=== PATIENT | male | born 1950 | race Caucasian/White ===

== ENCOUNTER → 2021-11-20 09:28 | Outpatient (BNVA) | payer MEDICARE, OTHER, SELFPAY | PROVIDERS: PCP Student in an Organized Health Care Education/Training Program; Visit Provider Internal Medicine Rheumatology | DX: M15.9 Polyosteoarthritis, unspecified (principal); R76.8 Other specified abnormal immunological findings in serum; Z11.59 Encounter for screening for other viral diseases; Z71.85 Encounter for immunization safety counseling; Z79.899 Other long term (current) drug therapy; Z11.1 Encounter for screening for respiratory tuberculosis | CPT/HCPCS: 36415; 80076; 82565; 85025; 85651; 86140; 86160; 86162; 86200; 86235; 86255; 86376; 86431; 86480; 86704; 86803; 87340; 99204 ==

== ENCOUNTER → 2022-01-27 10:49 | Outpatient (BNVA) | payer MEDICARE, OTHER, SELFPAY | PROVIDERS: PCP Student in an Organized Health Care Education/Training Program; Visit Provider Internal Medicine Rheumatology | DX: M15.9 Polyosteoarthritis, unspecified (principal); R76.8 Other specified abnormal immunological findings in serum; Z79.899 Other long term (current) drug therapy; Z71.85 Encounter for immunization safety counseling | CPT/HCPCS: 36415; 72072; 72100; 73030; 80076; 82565; 85025; 86140; 99214 ==

== ENCOUNTER 2022-03-19 10:35 | Outpatient (CLI) | payer MEDICARE, OTHER, SELFPAY ==
--- NOTE | 2022-03-19 11:00 | MR_ITS ---
WS: [id number] MRI LEFT SHOULDER HISTORY: Crystal arthropathies. Chronic shoulder pain. COMPARISON: 01/27/2022 radiograph TECHNIQUE: Multiplanar sequences of the shoulder joint are submitted. Severe AC joint arthritis with encroachment upon the myotendinous supraspinatus. Edema along the AC l igament with hypertrophic osteophytes and erosions involving the distal clavicle. Mild subacromial im pingement by the distal acromion. No os acromion. Normal biceps tendon. Large hypertrophic osteophyte along the medial surface of the humeral head. Narrowing of the glenohum eral joint. Loss of cartilage. Additional osteophytes are bridging the glenoid. Chondral cystic changes along the posterior superior humeral head. Moderate tendinopathy in the distal supraspinatus tendon. Fraying along the articular surfaces. There is a small amount of increased focal edema at the subacromial impingement. There is also interstitia l fluid in the distal supraspinatus tendon. Subscapularis and infraspinatus tendons are intact. Fluid in the rotator cuff interval. MR/MR shoulder LT wo con* [id number] IMPRESSION: 1. Severe AC joint arthritis with encroachment upon the supraspinatus tendon. There are small erosions in the distal clavicle which can be seen with osteoart hritis, rheumatoid or gout. 2. Mild subacromial impingement. There is a small amount of edema and tendinop athy in the supraspinatus where there is impingement. 3. Large hypertrophic osteophyte surround the medial humeral head with loss of cartilage over the humeral head and glenoid. 4. Moderate tendinopathy distal supraspinatus tendon with fraying along the burgos rfaces. Additional interstitial fluid in the distal supraspinatus tendon.
== END 2022-03-19 10:36 | disposition home or self-care (01) ==
LOC: RAD 10:40
PROVIDERS: PCP Student in an Organized Health Care Education/Training Program; Visit Provider Internal Medicine Rheumatology
DX: M11.8 Other specified crystal arthropathies (principal); G89.29 Other chronic pain; M25.712 Osteophyte, left shoulder
CPT/HCPCS: 73221

== ENCOUNTER → 2022-04-21 11:27 | Outpatient (BNVA) | payer MEDICARE, OTHER, SELFPAY | PROVIDERS: PCP Student in an Organized Health Care Education/Training Program; Referring Provider Internal Medicine Rheumatology; Visit Provider Nurse Practitioner Family | DX: M19.012 Primary osteoarthritis, left shoulder (principal); M06.4 Inflammatory polyarthropathy | CPT/HCPCS: 73030; 99214 ==

== ENCOUNTER → 2022-06-09 09:36 | Outpatient (BNVA) | payer MEDICARE, OTHER, SELFPAY | PROVIDERS: PCP Student in an Organized Health Care Education/Training Program; Visit Provider Nurse Practitioner Family | DX: M19.90 Unspecified osteoarthritis, unspecified site (principal); M19.012 Primary osteoarthritis, left shoulder; R76.8 Other specified abnormal immunological findings in serum; Z79.899 Other long term (current) drug therapy; Z71.85 Encounter for immunization safety counseling | CPT/HCPCS: 36415; 80076; 82565; 85025; 86140; 99214 ==

== ENCOUNTER 2022-06-24 06:15 | Outpatient (CLI) | payer MEDICARE, OTHER, SELFPAY ==
--- NOTE | 2022-06-24 07:00 | CT_ITS ---
WS: [id number] NONCONTRAST CT LEFT SHOULDER TECHNIQUE: Noncontrast CT LEFT shoulder with coronal and sagittal reformatted images. CLINICAL INFORMATION: shoulder pain COMPARISON: None. DLP: 350.[address] scans at [facility] use at least one of these dose optimization techniques: automated e xposure control; mA and/or kV adjustment per patient size (includes targeted exams where dose is matc hed to clinical indication); or iterative reconstruction. FINDINGS: Moderate degenerative arthritis at the AC joint. Mild downsloping acromion. Impingement on the distal supraspinatus. Advanced degenerative arthritis glenohumeral articulation with hypertrophic spurring. Narrowing of the subacromial space. Hypertrophic spurring along the humeral neck. Hypertrophic spurr ing along the undersurface distal clavicle at the AC joint. Calcific tendinitis involving the distal supraspinatus insertion. Mild chronic thinning of the supras pinatus. Supraspinatus appears intact. Infraspinatus appears intact. Normal subscapularis. Normal teres minor. Subchondral cystic changes involving the greater tuberosity and glenoid. Biceps tendon appears intact within the bicipital groove. Partially visualized LEFT lung is normal. CT/CT shoulder LT wo con* [id number] IMPRESSION: 1. Moderate degenerative arthritis AC joint with hypertrophic spurring along t he distal clavicle. Mild narrowing of the subacromial space. 2. Chronic thinning of the distal supraspinatus appears intact. Rotator cuff o therwise appears intact.Calcific tendinitis involving the distal supraspinatus insertion. 3. Advanced narrowing of the glenohumeral articulation with prominent hypertro phic spurring along the medial humeral neck. 4. No other acute findings.
== END 2022-06-24 06:16 | disposition home or self-care (01) ==
LOC: RAD 06:16
PROVIDERS: PCP Registered Nurse; Visit Provider Nurse Practitioner Family
DX: M25.512 Pain in left shoulder (principal); M19.012 Primary osteoarthritis, left shoulder
CPT/HCPCS: 73200; 99213

== ENCOUNTER 2022-06-29 12:17 | Observation (INO) | payer MEDICARE, OTHER, SELFPAY ==
[2022-06-23 09:22] VITALS: BMI 28.4
--- NOTE | 2022-06-23 09:47 | P.ANESASSM_ITS ---
Pre-Anesthetic Assessment Height/Weight: Height 1.8 m Weight 92.533 kg Operation Date: 06/29/22 13:20 Proposed Procedures p left total shoulder arthroplasty/ 98285,M19.012(Left) - Eduardo Parsons MD Familial anesthetic complications: None Social No alcohol and No tobacco Exam alert, oriented x 3, clear to auscultation bilaterally and regular rate & rhythm Airway Mallampati: Class II Dentition: false Pulmonary None reported CV/HEM Hypertension leaky valves (mild) - no chest pains, syncope, SOB GI Gastroesophageal Reflux Disease [facility] Rheumatoid Arthritis Inflammatory arthritis Neuropsych Transient Ischemic Attack Anesthetic Plan ASA status: 3 Anesthesia: General and Regional (specify below) Risk of > 500 ml blood loss (7ml/kg in children): No Medications/Allergies Home Medications Medication Instructions Recorded Confirmed Last Taken Type cetirizine 10 mg tablet 10 mg PO DAILY PRN Allergic 11/20/21 06/23/22 1 Day Ago History Symptoms ~06/22/22 cholecalciferol (vitamin D3) 50 50 mcg PO DAILY 11/20/21 06/23/22 1 Day Ago History mcg (2,000 unit) capsule ~06/22/22 folic acid 1 mg tablet 1 mg PO DAILY #90 tabs 11/20/21 06/23/22 1 Day Ago Rx ~06/22/22 glucosamine HCl 1,500 mg tablet 1,500 mg PO BID 11/20/21 06/23/22 1 Day Ago Hi story ~06/22/22 losartan 100 mg tablet 100 mg PO DAILY 11/20/21 06/23/22 1 Day Ago History ~06/22/22 multivitamin 1 tab PO DAILY 11/20/21 06/23/22 1 Day Ago History ~06/22/22 pantoprazole 40 mg tablet,delayed 40 mg PO DAILY 11/20/21 06/23/22 1 Day Ago History release ~06/22/22 [id number] no2 [TL PO 11/20/21 06/09/22 1 Day Ago History Folate] ~06/22/22 tamsulosin 0.4 mg capsule 0.8 mg PO DAILY 11/20/21 06/23/22 1 Day Ago History ~06/22/22 methotrexate sodium 2.5 mg tablet See Rx Instructions PO .Q7days #30 06/09/22 06/23/22 1 Day Ago Rx tabs ~06/22/22 aspirin 81 mg capsule 81 mg PO DAILY 06/23/22 06/23/22 1 Day Ago History ~06/22/22 celecoxib 100 mg capsule 100 mg PO DAILY 06/23/22 06/23/22 1 Day Ago History ~06/22/22 nortriptyline 25 mg capsule 25 mg PO 06/23/22 Unknown History Allergies Allergy/AdvReac Type Severity Reaction Status Date / Time No Known Allergies Allergy Verified 06/23/22 09:11 [facility] Anesthesia Medical History Centromere antibody positive GERD (gastroesophageal reflux disease) Gout High risk medication use Hypertension Immunization counseling Inflammatory arthritis Kidney stone Positive ONEIDA (antinuclear antibody) Syncopal episodes Surgical History History of cholecystectomy Previous back surgery L4 L5 Family History Other Crohn's disease Denies family history of Rheumatoid arthritis Diabetes Lupus Family history of premature coronary artery disease Lung disease Hypertension Stroke Social History Smoking and tobacco status: never smoked Data Anesthesia Cardiac Studies: No Data to Display
[2022-06-29] VITALS (14 sets, daily range): BP systolic 94–139; BP diastolic 61–86; PULSE 67–109; RESP 14–18; TEMP 36.1–36.8; O2SAT 90–100
[2022-06-29] MEDS: gabapentin 300 mg Capsule PO ×2 (08:21→16:54)
[2022-06-29] MEDS: acetaminophen 500 mg Tablet 1000 MG PO ×2 (08:21→16:41)
[2022-06-29] MEDS: CELEcoxib 200 mg Capsule 400 MG PO (08:21)
[2022-06-29] MEDS: sodium chloride 0.9% 1,000 ML 30 ML IV (08:21)
--- NOTE | 2022-06-29 08:58 | P.ANESUD_ITS ---
Pre-Anesthetic Update Pre-Anesthetic Assessment: Date of Surgery/Procedure: 06/29/22 Preop Lyndsey gnosis: Osteoarthritis left shoulder Proposed Procedure: Operation Date: 06/29/22 10:05 Proposed Procedures p left total shoulder arthroplasty/ 12429,M19.012(Left) - Eduardo Parsons MD Any changes to Pre-Anesthetic Assessment?: No Last Intake: Intake Last Liquid Date 06/28/22 Last Liquid Time 19:30 Last Solid Date 06/28/22 Last Solid Time 17:30 Vitals: Oxygen Delivery Me thod 06/29/22 08:17 Exam: Pre-Anes Outpt Exam: alert, oriented x 3, clear to auscultation bilaterally and regular rate & rhythm Cardiac Studies: No Data to Display Anesthesia Procedures Nerve Block: Nerve Block 1: Main Anesthesia: general anesthesia Time Out Performed: Yes Consent: requested by attending/covering physician, from patient, risks and benefits reviewed and patient agrees to proceed Nerve block location: interscalene (left) Anesthesia monitors applied: pulse oximetry, EKG, BP cuff and oxygen Nerve block position: semi sitting Anesthetic Used: ropivicaine 0.5% Amount of anesthesia used (mL): 30 Ultrasound used to: recognize landmarks and visualize and ID brachial plexus Nerve Stimulator Used?: No Interscalene/Femoral BLK: 2 stimuplex 22 g needle used for position and inplane approach Injection: neg aspiration of heme Patient Tolerated Procedure: well Complications: none
--- NOTE | 2022-06-29 09:19 | W.PM.OPSFHP ---
Same Day Surgery H&P Indication for Procedure/HPI DATE OF PROCEDURE: June 29, 2022 CHIEF COMPLAINT/INDICATIONFOR SURGICAL PROCEDURE: Here for total shoulder arthroplasty PREOP DIAGNOSIS: Osteoarthritis left shoulder PLANNED PROCEDURE: Operation Date: 06/29/22 10:05 Proposed Procedures p left total shoulder arthroplasty/ 83205,M19.012(Left) - Eduardo Parsons MD 72 year old male patient here for follow up of his left shoulder. Patient has been treated by Vaibhav Dee NP and is currently scheduled for total shoulder arthroplasty on 06/29/22.? Describes years of pain that is progressively been worse.? He describes at this point really not being able to use his old shoulder for any meaningful activity.? He cannot reach his head without bending his neck forward.? He has tried Celebrex for years but is finding anti-inflammatories less beneficial.? He would like his pain improved and better functional use of his shoulder for improved quality of life.? He is scheduled for a left total shoulder Medications/Allergies* Home Medications Medication Instructions Recorded Confirmed Type cetirizine 10 mg tablet 10 mg PO DAILY PRN Allergic 11/20/21 06/29/22 History Symptoms cholecalciferol (vitamin D3) 50 50 mcg PO DAILY 11/20/21 06/24/22 History mcg (2,000 unit) capsule glucosamine HCl 1,500 mg tablet 1,500 mg PO BID 11/20/21 06/24/22 History losartan 100 mg tablet 100 mg PO DAILY 11/20/21 06/24/22 History multivitamin 1 tab PO DAILY 11/20/21 06/24/22 History pantoprazole 40 mg tablet,delayed 40 mg PO DAILY 11/20/21 06/24/22 History release [id number] no2 [TL PO 11/20/21 06/24/22 History Folate] tamsulosin 0.4 mg capsule 0.8 mg PO DAILY 11/20/21 06/24/22 History aspirin 81 mg capsule 81 mg PO DAILY 06/23/22 06/24/22 History celecoxib 100 mg capsule 100 mg PO DAILY 06/23/22 06/24/22 History nortriptyline 25 mg capsule 25 mg PO DAILY 06/23/22 06/29/22 History Allergies/Adverse Reactions Allergy/AdvReac Type Severity Reaction Status Date / Time No Known Allergies Allergy Verified 06/24/22 08:46 Current Medications: Generic Name Dose Route Start Last Admin Trade Name Freq PRN Reason Stop Dose Admin Sodium Chloride 1,000 mls @ 30 mls/hr 06/29/22 08:00 06/29/22 08:21 Sodium Chloride 0.9% IV 06/30/22 07:59 30 mls/hr .Q24H MIRACLE Administration Pertinent History/Comorbid Conditions* Medical History (Updated 04/21/22 @ 12:17 by BARRERA Green) Centromere antibody positive GERD (gastroesophageal reflux disease) Gout High risk medication use Hypertension Immunization counseling Inflammatory arthritis Kidney stone Positive ONEIDA (antinuclear antibody) Syncopal episodes Surgical History (Updated 11/20/21 @ 11:14 by Onofre Martinez MD) History of cholecystectomy Previous back surgery L4 L5 Family History (Updated 11/20/21 @ 10:18 by Hanny Piper LPN) Crohn's disease Denies family history of Rheumatoid arthritis Diabetes Lupus Family history of premature coronary artery disease Lung disease Hypertension Stroke Social History Smoking and tobacco status: never smoked Pertinent Exam Findings alert, oriented x 3, clear to auscultation bilaterally and operative site marked Examining the patient's left shoulder Today I can flex him to 90 degrees and externally rotate him to neutral He has pain abducting his arm away from his body and with external rotator strength testing but reasonable strength. He appears to have a negative belly press test. Recommendations Surgery/Procedure today Coding Level of Care Code Acute Code for Chg Fwd
[2022-06-29] MEDS: ceFAZolin 2,000 MG in sodium chloride 0.9% (plus) 50 ML 100 MG IV ×2 (09:45→16:42)
[2022-06-29] MEDS: tranexamic acid 1,000 mg/10mL SDV 1000 MG IV (10:08)
[2022-06-29] MEDS: sodium chloride 0.9% 100 mL Bag XX (10:40)
[2022-06-29] MEDS: EPINEPHrine 1 mg/mL INJ XX (10:42)
--- NOTE | 2022-06-29 12:04 | P.OP_ITS ---
Operative Report Date of procedure: June 29, 2022 Pre-op diagnosis: Preop Diagnosis Osteoarthritis left shoulder Post-op diagnosis: same Procedure done: [] total shoulder arthroplasty Implants: Tornier total shoulder 1) Simpliciti size 3 nucleus 2) Simpliciti STB Humeral Head 56 mm, thickness 18 mm 3) Aequalis PerFORM cortiolc pegged glenoid 40 mm, large Pathology: none sent Surgeon: Eduardo Parsons Anesthesia: General and Nerve Block (Interscalene) Estimated blood loss (mL): 100 Complications: None Findings: Patient had eburnated bone over the humeral head and glenoid with large inferior osteophytes of the humeral head Condition: stable Disposition: PACU Brief History: 72-year-old male with progressive left shoulder pain unresponsive to medication s. He has significant functional loss of use in the left shoulder and is here for an elective left total shoulder arthroplasty Procedure: Patient was given a interscalene block in holding. The patient was taken to the operating room and was given 2 g of Ancef. He is prepped and draped in the beachchair position with his arm supported on a Rodrigues stand. A timeout was performed. A 10cm incision was made just lateral to the coracoid extending distally in line with the medial deltoid border. Dissection was carried out identifying the cephalic vein in the deltopectoral interval. Dissection was accomplished manually through the interval and subacromial and lateral deltoid adhesions released by hand. A Damian soft tissue protector was placed. The biceps tendon was identified distally and traced proximally through the bicipital groove. The subscapularis and underlying capsule were then peeled off of the lesser tuberosity. The free tendon was fixed with braided sutures in a locking fashion and the free ends secured with a hemostat. The rotator interval was then split. The shoulder then could be dislocated out of the wound. In accordance with our preoperative plan a femoral head cut was made at the level of the capsular insertions with retractors to protect the rotator cuff. A central pin was placed and the proximal humerus prepared for the size nucleus and covered with the humeral protector plate. Retractors were then placed around the glenoid with the humeral head being retracted posteriorly and inferiorly. Release of the capsule was accomplished beginning anteriorly and working posteriorly around the humeral head. In accordance with the plan the central guidepin was placed. The glenoid was planed down to subchondral bone removing. The central peg hole and peripheral holes were then placed. The glenoid was irrigated removing cartilaginous remnants. Peripheral peg holes were dried with a Ray-Tamra and prepared with an epinephrine solution. Simplex P antibiotic cement was packed in each pedicle and the final glenoid component placed. Trial reduction was accomplished before settling on the mm mm thickness glenoid. The final humeral head was placed in the shoulder reduced. 4 drill holes were then made beginning in the bicipital groove posteriorly into the greater tuberosity. Sutures from the subscapularis were passed through these holes and the sutures were secured over a 4-hole mini plate over the greater tuberosity with excellent purchase. The rotator interval was closed laterally with a braided nylon suture. The shoulder was irrigated with saline. The deltopectoral interval was closed with interrupted 0 Vicryl suture. Subcutaneous tissues were closed with running 2-0 Stratafix. Skin edges closed with a running 4-0 Stratafix. The skin was covered with a Prineo skin glue and covered with OpSite. The patient was placed in a sling, extubated, and taken recovery room in stable condition.
--- NOTE | 2022-06-29 12:13 | XR_ITS ---
WS: [id number] Exam: XR shoulder LT min 2V* [id number] Date/Time of Exam: 06/29/2022 12:13 PM Reason For Exam: Left total shoulder Comparison 04/21/2022. A left shoulder prosthesis is in place in satisfactory position. Postoperative changes in the adjacen t soft tissues. XR/XR shoulder LT min 2V* [id number] IMPRESSION: 1. Left shoulder prosthesis in satisfactory position.
--- NOTE | 2022-06-29 12:41 | P.PCN_ITS ---
PACU note Narrative: VSS, Good respiratory effort, report to WATER POLLUTION SCIENTIST Exam: awake
--- NOTE | 2022-06-29 12:41 | PM.PACU ---
PACU note Narrative: VSS, Good respiratory effort, report to ENGINE REPAIRER Exam: awake
--- NOTE | 2022-06-29 15:40 | ANE.PACU2 ---
Inpatient post-anesthesia follow up: Airway intact: Yes Vital signs: Temperature 97.1 F Pulse Rate 81 Respiratory Rate 16 Blood Pressure 98/62 Pulse Oximetry 92 Oxygen Delivery Me thod Room Air Oxygen Flow Rate 6 Fraction of Inspir ed Oxygen Hydration adequate: Yes Nausea and vomiting: No Pain level: 1 Mental status: Baseline
[2022-06-29] MEDS: CELEcoxib 200 mg Capsule PO (16:41)
[2022-06-29] MEDS: sodium chloride 0.9% 1,000 ML 80 ML IV (16:42)
[2022-06-30] MEDS: sodium chloride 0.9% 1,000 ML 80 ML IV (01:39)
[2022-06-30] MEDS: ceFAZolin 2,000 MG in sodium chloride 0.9% (plus) 50 ML 100 MG IV ×2 (01:40→10:30)
[2022-06-30] MEDS: acetaminophen 500 mg Tablet 1000 MG PO ×2 (01:55→08:26)
[2022-06-30 04:00] VITALS: BP 117/72; PULSE 85; RESP 17; TEMP 36.6; O2SAT 96
--- NOTE | 2022-06-30 07:21 | PM.DCS ---
Discharge Providers Date of Admission: 06/29/22 12:17 Date of Discharge: June 30, 2022 Attending Provider at Admission: Eduardo Verma MD Attending Provider at Discharge: Eduardo Verma MD Primary Care Provider: BARRERA Covarrubias Diagnoses at Discharge Discharge Diagnosis (1) Status post replacement of left shoulder joint: Status: Acute (2) Osteoarthritis of left shoulder: Status: Resolved Qualifiers: Osteoarthritis type: primary Qualified Code(s): M19.012 - Primary osteoarthritis, left shoulder Reason for Visit Reason for Visit: M19.012 Hospital Course Hospital Course The patient tolerated surgery well. They remained hemodynamically stable. They was begun on aspirin and sequential compressive dressing for DVT prophylaxis. As the pain was adequately controlled and they were fully mobile they were discharged home on the first postoperative day Physical Exam Narrative: On the day of discharge the patient's dressing was clean and dry. The patient's would fire his deltoid and their biceps. No distal neurovascular deficits were noted. Discharge Data Studies Completed and Pending Completed Studies During Hospitalization Category Date Time Status XR shoulder LT min 2V* [id number] Routine Exams 06/29/22 12:13 Completed Radiology Impressions Shoulder X-Ray 06/29/22 12:13 IMPRESSION: 1. Left shoulder prosthesis in satisfactory position. Vitals Last Vital Signs Temp 97.8 F 06/30/22 04:00 Pulse 85 06/30/22 04:00 Resp 17 06/30/22 04:00 BP 117/72 06/30/22 04:00 Pulse Ox 96 06/30/22 04:00 O2 Del Method 06/29/22 17:30 O2 Flow Rate 6 06/29/22 12:35 Discharge Plan Discharge Patient Disposition: Home Condition: Stable Prescriptions: New oxycodone 5 mg Tablet 5 mg PO Q4H PRN (Reason: Moderate Pain) 7 Days Qty: 40 0RF acetaminophen 500 mg Tablet 1,000 mg PO Q8H 14 Days Qty: 84 0RF Continued glucosamine HCl 1,500 mg tablet 1,500 mg PO BID Rx Instructions: administer with a meal losartan 100 mg tablet 100 mg PO DAILY pantoprazole 40 mg tablet,delayed release (DR/EC) 40 mg PO DAILY cetirizine 10 mg tablet 10 mg PO DAILY PRN (Reason: Allergic Symptoms) tamsulosin 0.4 mg capsule 0.8 mg PO DAILY [id number] no2 [TL Folate] PO cholecalciferol (vitamin D3) 50 mcg (2,000 unit) capsule 50 mcg PO DAILY multivitamin Tablet 1 tab PO DAILY folic acid 1 mg tablet 1 mg PO DAILY Qty: 90 3RF methotrexate sodium 2.5 mg tablet See Rx Instructions PO .Q7days Qty: 30 3RF Rx Instructions: take 6 tabs on same day once a week PO .Q7days; nortriptyline 25 mg capsule 25 mg PO DAILY celecoxib 100 mg capsule 100 mg PO DAILY aspirin 81 mg Capsule 81 mg PO DAILY Discharge Orders: Discharge Order (Routine); Ordered 06/30/22 Ordered By: Eduardo Verma Referrals: Eduardo Verma MD [Physician] - 07/14/22 10:45 am Discharge Activity: Limit activity as instructed Patient Instructions: Opioid Safety Activity Restrictions/Additional Instructions: Okay to shower. No soaking incision in tub Apply FirstIce up to 20 min/hr for pain and swelling Take Celebrex twice a day for the next 15 days for pain , discontinue other anti-inflammatories Take Tylenol 500mg (up to 2 tabs) 3 times a day for mild pain take oxycodone for breakthrough pain. Exercises per Occupational Therapy IF HAVE ANY PROBLEMS OR QUESTIONS CALL [facility] AND ASK TO HAVE DR. VERMA PAGED. Discharge Attestations Time Spent in Discharge Care*: other Quality Metrics Clinical Quality Measures [ No reported AMI, CVA or VTE this stay] Coding Level of Care Code Acute Code for Chg Fwd Diagnoses Status post replacement of left shoulder joint Z96.612 Osteoarthritis of left shoulder M19.012 Osteoarthritis type: primary
--- NOTE | 2022-06-30 07:35 | PC.PHAR ---
DR VERMA WROTE A SCRIPT FOR OXYCODONE - DISCHARGE ORDERS ARE IN- CAN NOT DO MED REC
[2022-06-30 08:00] VITALS: BP 130/78; PULSE 80; RESP 18; TEMP 36.5; O2SAT 96
[2022-06-30] MEDS: tamsulosin 0.4 mg Capsule 0.8 MG PO (08:26)
[2022-06-30] MEDS: CELEcoxib 200 mg Capsule PO (08:26)
[2022-06-30] MEDS: aspirin 81 mg EC Tablet PO (08:27)
[2022-06-30] MEDS: pantoprazole DR 40 mg Tablet PO (08:27)
[2022-06-30] MEDS: losartan 50 mg Tablet 100 MG PO (08:27)
[2022-06-30] MEDS: gabapentin 300 mg Capsule PO (08:27)
[2022-06-30] MEDS: folic acid 1 mg Tablet PO (08:27)
--- NOTE | 2022-06-30 10:39 | PC.CHAP ---
Pastoral Care Encounter/Spiritual Assessment Type of Contact [] Declined rotary filter operator visit [] Patient/Family/Request visit [] Outpatient visit [] Follow-up visit [] Physician referral [] Code/Alert [x] Routine visit [] Staff referral [] Actively dying [] Patient sleeping [x] Family support [] [] Out of room [] Palliative care [] [] Receiving care in room [] Pre-surgical visit [] Trauma [] Long length of stay [] ICU visit [] Other: Relational/Emotional Strength [x] Patient feels connected with others/family/visitors/staff [] Distress [] Loneliness/isolation [] Abandonment Spirituality of Patient [x] Person of Linda [] Attends Protestant of their Linda [x] Believes in Prayer [] Reads Bible or Rastafari materials [] There are Spiritual issues to be addressed Intensive Care Nurse Interventions [x] Prayer [x] Active listening [] Non-anxious presence [x] Spiritual/emotional support [] Crisis/trauma care [] Spiritual counseling [] Bereavement support [] Provided bereavement packet [] Provided Bible/devotional materials [] Provided toy/stuffed animal, coloring book to patient or family member [] Provided Communion [] Anointing/[place] [] Salvation [x] Completed spiritual assessment [] Other: Impact on Illness or Injury [] Angry [] Fearful [] Anxious [] Often cries [] Exhaustion [] Unable to work [] Unable to attend yarsani [] Unable to walk/stand [] Unable to read [] Unable to drive [] Unable to eat/drink [] Unable to sleep [] Unable to be with family [] Patient intubated [] Other: Summary Time spent with patient 5 min
--- NOTE | 2022-06-30 11:50 | PC.NURSE ---
patient verbalized understanding of discharge instructions, home medications, and follow up appointments.
[2022-06-30 11:52] VITALS: BP 130/78; PULSE 80; RESP 18; TEMP 36.5; O2SAT 96
== END 2022-06-30 11:53 | disposition home health service (06) ==
LOC: MEDSURG 12:17
PROVIDERS: Admitting Provider Orthopaedic Surgery; PCP Registered Nurse; Visit Provider Orthopaedic Surgery
PROC: (CPT 23472; principal; 2022-06-29 09:35)
DX: M19.012 Primary osteoarthritis, left shoulder (principal); I10 Essential (primary) hypertension; K21.9 Gastro-esophageal reflux disease without esophagitis; M06.9 Rheumatoid arthritis, unspecified; Z86.73 Personal history of transient ischemic attack (TIA), and cerebral infarction without residual deficits; Z79.82 Long term (current) use of aspirin
CPT/HCPCS: 23472; 73030; 97165; C1776 ×2; G0378; J0171; J0690; J1100; J1580; J2370; J2405; J2704; J2710; J2795; J3010; J3490; J7030

== ENCOUNTER → 2022-07-14 10:30 | Outpatient (BNVA) | payer MEDICARE, OTHER, SELFPAY | PROVIDERS: PCP Registered Nurse; Visit Provider Orthopaedic Surgery | DX: Z96.612 Presence of left artificial shoulder joint (principal) | CPT/HCPCS: 99024 ==

== ENCOUNTER → 2022-08-11 07:39 | Outpatient (BNVA) | payer MEDICARE, OTHER, SELFPAY | PROVIDERS: PCP Registered Nurse; Visit Provider Orthopaedic Surgery | DX: Z96.612 Presence of left artificial shoulder joint (principal) | CPT/HCPCS: 73030; 99024 ==

== ENCOUNTER → 2022-09-07 13:37 | Outpatient (BNVA) | payer MEDICARE, OTHER, SELFPAY | PROVIDERS: PCP Registered Nurse; Visit Provider Internal Medicine Rheumatology | DX: M19.90 Unspecified osteoarthritis, unspecified site (principal); Z79.899 Other long term (current) drug therapy; R76.8 Other specified abnormal immunological findings in serum; Z71.85 Encounter for immunization safety counseling; Z96.612 Presence of left artificial shoulder joint | CPT/HCPCS: 99214 ==

== ENCOUNTER → 2022-09-08 07:54 | Outpatient (BNVA) | payer MEDICARE, OTHER, SELFPAY | PROVIDERS: PCP Registered Nurse; Visit Provider Orthopaedic Surgery | DX: Z96.612 Presence of left artificial shoulder joint (principal) | CPT/HCPCS: 99024 ==

== ENCOUNTER 2022-10-09 09:08 | Outpatient (CLI) | payer MEDICARE, OTHER, SELFPAY ==
[2022-10-09 10:53] LABS: Basophils # 0.1 10^3/uL (0.0-0.1); Basophils % 0.9 %; Eosinophils # 0.2 10^3/uL (0.0-0.8); Eosinophils % 2.2 %; Hematocrit 47.4 % (42.0-52.0); Hemoglobin 16.2 g/dL (11.7-16.6); Lymphocytes # 1.2 10^3/uL (0.8-4.8); Lymphocytes % 17.9 %; Mean Corpuscular HGB Conc 34.2 g/dL (30.0-36.0); Mean Corpuscular Hemoglobin 33.6 pg (28.0-34.0); Mean Corpuscular Volume 98.3 fl (80-94); Monocytes # 0.6 10^3/uL (0.2-0.9); Monocytes % 8.2 %; Neutrophils # 4.72 10^3/uL (1.8-7.7); Neutrophils % 70.5 %; Nucleated Red Blood Cells % 0 %; Platelet Count 216 10^3/cmm (130-400); Red Blood Count 4.82 10^6/uL (4.1-5.3); Red Cell Distribution Width 13.9 % (12.1-15.1); White Blood Count 6.7 10^3/uL (4.0-10.0)
[2022-10-09 11:13] LABS: Alanine Aminotransferase 17 U/L (0-41); Albumin Level 4.4 g/dL (3.5-5.2); Alkaline Phosphatase 81 U/L (40-130); Aspartate Amino Transferase 15 U/L (0-40); Globulin 2.5 g/dL (1.3-4.6); Glomerular Filtration Rate 95.6 mL/min (90-130); Total Bilirubin 0.5 mg/dL (0.15-1.2); Total Protein 6.9 g/dL (6.6-8.7)
== END 2022-10-09 09:09 | disposition home or self-care (01) ==
LOC: LAB 09:12
PROVIDERS: PCP Registered Nurse; Visit Provider Internal Medicine Rheumatology
DX: Z96.612 Presence of left artificial shoulder joint (principal); M19.90 Unspecified osteoarthritis, unspecified site; Z79.899 Other long term (current) drug therapy
CPT/HCPCS: 36415; 73030; 80076; 82565; 85025; 86140; 99213

== ENCOUNTER → 2022-12-21 13:11 | Outpatient (BNVA) | payer MEDICARE, OTHER, SELFPAY | PROVIDERS: PCP Registered Nurse; Visit Provider Internal Medicine Rheumatology | DX: Z79.899 Other long term (current) drug therapy (principal); M19.90 Unspecified osteoarthritis, unspecified site; M65.30 Trigger finger, unspecified finger; R76.8 Other specified abnormal immunological findings in serum; Z71.85 Encounter for immunization safety counseling; Z96.612 Presence of left artificial shoulder joint | CPT/HCPCS: 99214 ==

== ENCOUNTER → 2023-02-02 15:16 | Outpatient (BNVA) | payer MEDICARE, OTHER, SELFPAY | PROVIDERS: PCP Registered Nurse; Referring Provider Internal Medicine Rheumatology; Visit Provider Student in an Organized Health Care Education/Training Program | DX: M65.332 Trigger finger, left middle finger; M65.342 Trigger finger, left ring finger | CPT/HCPCS: 73130; 99204 ==

== ENCOUNTER 2023-02-04 05:46 | Day surgery (SDC) | payer MEDICARE, OTHER, SELFPAY ==
[2023-02-04] VITALS (7 sets, daily range): BP systolic 124–143; BP diastolic 82–97; PULSE 59–77; RESP 15–17; TEMP 36.1–36.6; O2SAT 94–98; BMI 29.5
[2023-02-04] MEDS: acetaminophen 1,000 MG/100 ML PIGGYBACK 400 MG IV (06:56)
[2023-02-04] MEDS: ketorolac 30 mg/mL INJ IVP (06:56)
[2023-02-04] MEDS: sodium chloride 0.9% 1,000 ML 30 ML IV (07:01)
--- NOTE | 2023-02-04 07:16 | ANES.PREANE2 ---
Pre-Anesthetic Assessment Height/Weight: Height 1.8 m Weight 96.162 kg Temp Pulse Resp BP Pulse Ox O2 Del Method 97.0 F L 77 16 143/97 97 Room Air 02/04/23 06:48 02/04/23 06:48 02/04/23 06:48 02/04/23 06:48 02/04/23 06:48 02/04/23 06:48 Preop Diagnosis: Left middle and ring finger trigger Operation Date: 02/04/23 07:55 Proposed Procedures p LEft Middle and Ring Finger Trigger Finger Release(Left) - Shane Louann, DO Familial anesthetic complications: None Was Beta Mercedez taken within 24 hours: N/A Was Clonidine taken within 24 hours: N/A Last intake: Intake Last Liquid Date 02/03/23 Last Liquid Time 20:00 Last Solid Date 02/03/23 Last Solid Time 20:00 Social No alcohol and No tobacco Exam alert, oriented x 3, clear to auscultation bilaterally and regular rate & rhythm Airway Mallampati: Class II Dentition: false GI Gastroesophageal Reflux Disease [facility] [place] Rheumatoid Arthritis Neuropsych Transient Ischemic Attack Anesthetic Plan ASA status: 3 Anesthesia: MAC Risk of > 500 ml blood loss (7ml/kg in children): No Medications/Allergies Home Medications Medication Instructions Recorded Confirmed Last Taken Type cetirizine 10 mg tablet 10 mg PO DAILY PRN Allergic 11/20/21 02/03/23 02/03/23 History Symptoms cholecalciferol (vitamin D3) 50 50 mcg PO DAILY 11/20/21 02/03/23 02/03/23 History mcg (2,000 unit) capsule glucosamine HCl 1,500 mg tablet 1,500 mg PO BID 11/20/21 02/03/23 02/03/23 History losartan 100 mg tablet 100 mg PO DAILY 11/20/21 02/03/23 02/03/23 History multivitamin 1 tab PO DAILY 11/20/21 02/03/23 02/03/23 History pantoprazole 40 mg tablet,delayed 40 mg PO DAILY 11/20/21 02/03/23 02/03/23 History release tamsulosin 0.4 mg capsule 0.8 mg PO DAILY 11/20/21 02/03/23 02/03/23 History aspirin 81 mg capsule 81 mg PO DAILY 06/23/22 02/03/23 02/02/23 History nortriptyline 25 mg capsule 25 mg PO DAILY 06/23/22 02/03/23 02/03/23 History folic acid 1 mg tablet 1 mg PO DAILY #90 tabs 09/07/22 02/03/23 02/03/23 Rx methotrexate sodium 2.5 mg tablet See Rx Instructions PO .week 12/21/22 02/03/23 01/29/23 Rx Rheumatoid Arthritis #150 tabs prednisone 20 mg tablet See Rx Instructions PO .COMPLEX 12/21/22 02/03/23 Unknown Rx PRN joint pain flare #30 tabs Allergies Allergy/AdvReac Type Severity Reaction Status Date / Time No Known Drug Allergies Allergy Unknown ADR-Anxiety Verified 02/04/23 06:46 Current Medications Generic Name Dose Route Start Last Admin Trade Name Freq PRN Reason Stop Dose Admin Sodium Chloride 1,000 mls @ 30 mls/hr 02/04/23 06:45 02/04/23 07:01 Sodium Chloride 0.9% IV 02/05/23 06:44 30 mls/hr .Q24H MIRACLE Administration PFSH Anesthesia Medical History Centromere antibody positive GERD (gastroesophageal reflux disease) Gout High risk medication use Hypertension Immunization counseling Inflammatory arthritis Kidney stone Positive ONEIDA (antinuclear antibody) Syncopal episodes Surgical History History of cholecystectomy Previous back surgery L4 L5 Family History Other Crohn's disease Denies family history of Rheumatoid arthritis Diabetes Lupus Family history of premature coronary artery disease Lung disease Hypertension Stroke Social History Smoking and tobacco/nicotine status: never used tobacco/nicotine Data Anesthesia Cardiac Studies: No Data to Display
--- NOTE | 2023-02-04 08:24 | W.PM.OPSUD ---
Surgery/Procedure H&P Update DATE OF PROCEDURE: February 04, 2023 DATE H&P PERFORMED: 02/02/23 H&P UPDATE INFORMATION: I have reviewed H&P completed within last 30 days, I have examined patient prior to procedure and No changes to prior documentation PREOP DIAGNOSIS: Left middle and ring finger trigger PRIMARY INDICATION FOR PROCEDURE: Left middle finger and ring finger trigger PLANNED PROCEDURE: Operation Date: 02/04/23 07:55 Proposed Procedures p LEft Middle and Ring Finger Trigger Finger Release(Left) - Shane Lew DO
[2023-02-04] MEDS: ceFAZolin 2,000 MG in sodium chloride 0.9% (plus) 50 ML 100 MG IV (08:54)
[2023-02-04] MEDS: BUPivacaine 0.5% INJ 10 mL 5 ML INJECTION (09:16)
[2023-02-04] MEDS: ROPivacaine 0.5% SDV 30 mL 25 MG INJECTION (09:16)
--- NOTE | 2023-02-04 09:27 | P.BOP_ITS ---
Date of Procedure: 02/04/2023 Surgeon: Shane Lew DO Metal Gauge Maker(s): CHANELLE Barnett Procedure(s) performed: Left middle finger trigger release Left ring finger trigger release Findings of the procedure(s): Severe left middle and ring finger triggers with releases that went as planned Estimated blood loss: 2 cc Specimen(s) removed: None Post-operative diagnosis: Left middle and ring finger triggers
--- NOTE | 2023-02-04 09:29 | P.OP_ITS ---
Operative Report Date of procedure: February 04, 2023 Pre-op diagnosis: Left middle finger trigger Left ring finger trigger Post-op diagnosis: Same Surgeon: Shane Lew DO Procedure: Procedure done: Left middle finger?trigger?release Left ring finger trigger release Surgeon: Shane Lew DO Estimated blood loss: 2cc Tourniquet time 12mins Complications: None Condition: stable Disposition: same day Brief History: Patient's been seen and worked up in the outpatient setting and findings consistent with preoperative diagnosis of left middle and ring finger?trigger.? He is failed conservative treatment.? Continues to have mechanical locking and catching.? Severe pain as well.? We talked about treatment options nonoperative versus operative intervention.? ?Patient understands the risk benefits complication alternatives of surgical nonsurgical treatment options.? Understanding his risks with surgery he elects proceed with surgical intervention.? Consent obtained in the office.? Here today to proceed with surgical intervention.? All questions answered. Procedure: Patient was seen and evaluated in the preoperative holding area.? Consent was reviewed and signed with patient.? Seen evaluated by Anesthesia Department.? Once cleared for surgery was brought back to the operative suite.? Placed in supine position on the OR table all bony prominences well-padded patient properly secured to the bed.? Patient's left arm was then placed to the armboard.? A nonsterile tourniquet applied to the left upper arm.? Patient's left upper extremity was then prepped and draped in standard orthopedic fashion.? Final timeout performed.? Patient received appropriate preoperative antibiotics. Esmarch tourniquet was used exsanguinate the right upper extremity tourniquet insufflated to 250 mmHg. Under sterile aseptic technique local digital block was performed to the left middle and ring finger.? I started with the middle finger. Once appropriately anesthetized a standard longitudinal incision was made centering over the A1 anna marie following patient's flexor crease.? Sharp scalpel incision was made only through skin and then switched to Littler dissection scissors and spread longitudinally directly over the flexor tendon sheath.? I then mobilized both radially and ulnarly and Kasdan retractors were used and placed by my assistant professor of nursing to protect neurovascular bundle.? Next I visualized the A1 anna marie and this was incised with a scalpel.? I then switched to dissection scissors and released the A1 anna marie both proximally as well as distally to its entirety.? Significant tendon sheath fluid was noted consistent with inflammation.? Mild fraying of the flexor tendons noted but no tear.? At this point I utilized a rag nail and pulled the tendons FDS and FDP out of the incision and no?triggering was noted. Index today proceeded with the ring finger. Once appropriately anesthetized a standard longitudinal incision was made centering over the A1 anna marie following patient's flexor crease.? Sharp scalpel incision was made only through skin and then switched to Littler dissection scissors and spread longitudinally directly over the flexor tendon sheath.? I then mobilized both radially and ulnarly and Kasdan retractors were used and placed by my assistant professor of nursing to protect neurovascular bundle.? Next I visualized the A1 anna marie and this was incised with a scalpel.? I then switched to dissection scissors and released the A1 anna marie both proximally as well as distally to its entirety.? Significant tendon sheath fluid was noted consistent with inflammation.? Mild fraying of the flexor tendons noted but no tear.? At this point I utilized a rag nail and pulled the tendons FDS and FDP out of the incision and no?triggering was noted.? I then had anesthesia wake up the patient and patient was able to actively flex and extend with no?triggering.? I then had anesthesia wake up the patient and patient was able to actively flex and extend with no?triggering.? This point thorough irrigation was performed.? Tourniquet deflated hemostasis satisfactory with bipolar.? I then subsequently closed the incisions with interrupted nylon suture.? Xeroform 4 x 4's, Kerlix and an Scot wrap was applied for a bulky soft dressing.? Patient was then subsequently awakened from anesthesia and taken to PACU in stable condition tolerated procedure without issues. Disposition: Patient taken back in stable condition recovering well.? Patient will receive appropriate discharge instruction as well as pain medication postoperatively.? Patient to follow-up with me in the office in 2 weeks for repeat evaluation and incision check.? Patient understands that any questions or concerns and contact the office.? All questions answered.
--- NOTE | 2023-02-04 10:40 | ANE.PACU2 ---
Inpatient post-anesthesia follow up: Airway intact: Yes Vital signs: Temperature 98 F Pulse Rate 60 Respiratory Rate 17 Blood Pressure 129/88 Pulse Oximetry 96 Oxygen Delivery Me thod Room Air Oxygen Flow Rate Fraction of Inspir ed Oxygen Hydration adequate: Yes Nausea and vomiting: No Pain level: 1 Mental status: Baseline
== END 2023-02-04 10:40 | disposition home or self-care (01) ==
PROVIDERS: PCP Registered Nurse; Visit Provider Student in an Organized Health Care Education/Training Program
PROC: (CPT 26055; principal; 2023-02-04 07:55)
DX: M65.332 Trigger finger, left middle finger (principal); M65.342 Trigger finger, left ring finger; K21.9 Gastro-esophageal reflux disease without esophagitis; M06.9 Rheumatoid arthritis, unspecified; Z86.73 Personal history of transient ischemic attack (TIA), and cerebral infarction without residual deficits; Z79.82 Long term (current) use of aspirin; I10 Essential (primary) hypertension
CPT/HCPCS: 26055 ×2; J0131; J0690; J1885; J2704; J2795; J3010; J3490; J7030

== ENCOUNTER 2023-02-10 09:26 | Outpatient (RCR) | payer MEDICARE, OTHER, SELFPAY | END 2023-03-04 23:59 | disposition home or self-care (01) | LOC: SOT 09:26 | PROVIDERS: Visit Provider Student in an Organized Health Care Education/Training Program | DX: M65.332 Trigger finger, left middle finger (principal) | CPT/HCPCS: 97530; 97760; L3923 ==

== ENCOUNTER → 2023-02-19 08:41 | Outpatient (BNVA) | payer MEDICARE, OTHER, SELFPAY | PROVIDERS: Visit Provider Physician Assistant | DX: Z98.890 Other specified postprocedural states (principal) | CPT/HCPCS: 99024 ==

== ENCOUNTER 2023-05-13 09:10 | Outpatient (CLI) | payer MEDICARE, OTHER, SELFPAY ==
[2023-05-13 09:21] LABS: Basophils # 0.1 10^3/uL (0.0-0.1); Basophils % 0.9 %; Eosinophils # 0.1 10^3/uL (0.0-0.8); Eosinophils % 1.9 %; Lymphocytes # 1.1 10^3/uL (0.8-4.8); Lymphocytes % 18.1 %; Mean Corpuscular HGB Conc 33.8 g/dL (30-55); Mean Corpuscular Hemoglobin 33.6 pg (27-33); Mean Corpuscular Volume 99.6 fl (82-101); Mean Platelet Volume 8.8 fL (7.4-10.4); Monocytes # 0.4 10^3/uL (0.2-0.9); Monocytes % 7.4 %; Neutrophils # 4.14 10^3/uL (1.8-7.7); Neutrophils % 71.5 %; Nucleated Red Blood Cells % 0 %; Platelet Count 192 10^3/cmm (157-399); Red Blood Count 4.52 10^6/uL (3.85-5.65); Red Cell Distribution Width 13.7 % (12.1-15.1); White Blood Count 5.79 10^3/uL (3.29-11.43)
[2023-05-13 09:39] LABS: Alanine Aminotransferase 20 U/L (0-41); Albumin Level 4.1 g/dL (3.5-5.2); Alkaline Phosphatase 72 U/L (40-130); Aspartate Amino Transferase 18 U/L (0-40); Globulin 2.8 g/dL (1.3-4.6); Total Bilirubin 1.1 mg/dL (0.15-1.2); Total Protein 6.9 g/dL (6.6-8.7)
== END 2023-05-13 09:11 | disposition home or self-care (01) ==
LOC: LAB 09:10
PROVIDERS: PCP Registered Nurse; Visit Provider Internal Medicine Rheumatology
DX: Z79.899 Other long term (current) drug therapy (principal); M19.90 Unspecified osteoarthritis, unspecified site
CPT/HCPCS: 36415; 80076; 82565; 85025; 86140; 99214

== ENCOUNTER 2023-06-15 08:36 | Outpatient (CLI) | payer MEDICARE, OTHER, SELFPAY ==
[2023-06-15 09:05] LABS: Basophils % 0.9 %; Eosinophils # 0.1 10^3/uL (0.0-0.8); Eosinophils % 2.7 %; Hematocrit 43.8 % (37-53); Lymphocytes # 0.9 10^3/uL (0.8-4.8); Lymphocytes % 20.5 %; Mean Platelet Volume 9.3 fL (7.4-10.4); Monocytes # 0.4 10^3/uL (0.2-0.9); Monocytes % 9.5 %; Neutrophils # 2.91 10^3/uL (1.8-7.7); Neutrophils % 66.2 %; Nucleated Red Blood Cells % 0 %; Platelet Count 181 10^3/cmm (157-399); Red Blood Count 4.38 10^6/uL (3.85-5.65); Red Cell Distribution Width 13.2 % (12.1-15.1)
[2023-06-15 09:27] LABS: Alanine Aminotransferase 18 U/L (0-41); Alkaline Phosphatase 73 U/L (40-130); Aspartate Amino Transferase 20 U/L (0-40); Globulin 2.7 g/dL (1.3-4.6); Total Bilirubin 0.5 mg/dL (0.15-1.2); Total Protein 6.7 g/dL (6.6-8.7)
== END 2023-06-15 08:37 | disposition home or self-care (01) ==
LOC: LAB 08:37
PROVIDERS: PCP Registered Nurse; Visit Provider Internal Medicine Rheumatology
DX: G56.01 Carpal tunnel syndrome, right upper limb (principal); Z79.899 Other long term (current) drug therapy; M19.90 Unspecified osteoarthritis, unspecified site
CPT/HCPCS: 36415; 80076; 82565; 85025; 86140; 95910; 95911

== ENCOUNTER → 2023-06-28 08:36 | Outpatient (BNVA) | payer MEDICARE, OTHER, SELFPAY | PROVIDERS: PCP Registered Nurse; Visit Provider Specialist | DX: G56.03 Carpal tunnel syndrome, bilateral upper limbs (principal); Z46.89 Encounter for fitting and adjustment of other specified devices; G56.02 Carpal tunnel syndrome, left upper limb | CPT/HCPCS: 36415; 73130; 80053; 81003; 85025; 97760; 99214; L3908 ==

== ENCOUNTER 2023-06-28 10:08 | Outpatient (CLI) | payer MEDICARE, OTHER, SELFPAY | END 2023-06-28 10:09 | disposition home or self-care (01) | LOC: SPT 10:08 | PROVIDERS: PCP Registered Nurse; Visit Provider Specialist | DX: Z46.89 Encounter for fitting and adjustment of other specified devices (principal); G56.02 Carpal tunnel syndrome, left upper limb | CPT/HCPCS: 97760; 99214; L3908 ==

== ENCOUNTER → 2023-07-09 10:37 | Outpatient (BNVA) | payer MEDICARE, OTHER, SELFPAY | PROVIDERS: PCP Registered Nurse; Visit Provider Physician Assistant | DX: Z96.612 Presence of left artificial shoulder joint (principal) | CPT/HCPCS: 73030; 99213 ==

== ENCOUNTER → 2023-07-16 10:07 | Outpatient (BNVA) | payer MEDICARE, OTHER, SELFPAY | PROVIDERS: PCP Registered Nurse; Visit Provider Family Medicine | DX: Z01.818 Encounter for other preprocedural examination (principal); I21.19 ST elevation (STEMI) myocardial infarction involving other coronary artery of inferior wall | CPT/HCPCS: 93005 ==

== ENCOUNTER 2023-07-22 09:54 | Day surgery (SDC) | payer MEDICARE, OTHER, SELFPAY ==
[2023-07-22] VITALS (8 sets, daily range): BP systolic 105–132; BP diastolic 64–82; PULSE 60–68; RESP 16–18; TEMP 36.4–36.6; O2SAT 96–98; BMI 29.9
[2023-07-22] MEDS: sodium chloride 0.9% 1,000 ML 30 ML IV (10:40)
[2023-07-22] MEDS: CELEcoxib 200 mg Capsule 400 MG PO (10:40)
[2023-07-22] MEDS: acetaminophen 1,000 MG/100 ML PIGGYBACK 400 MG IV (10:40)
[2023-07-22] MEDS: gabapentin 300 mg Capsule PO (10:40)
--- NOTE | 2023-07-22 10:54 | ANES.PREANE2 ---
Pre-Anesthetic Assessment Height/Weight: Height 1.8 m Weight 97.522 kg Temp Pulse Resp BP Pulse Ox O2 Del Method 97.9 F 68 18 132/82 96 Room Air 07/22/23 10:07/22/23 10:07/22/23 10:07/22/23 10:07/22/23 10:07/22/23 10:23 Operation Date: 07/22/23 12:05 Proposed Procedures p Right Carpal Tunnel Release, Right Cubital Tunnel Release(Right) - Claribel Espinoza MD s Cubital Tunnel Release(Right) - Claribel Espinoza MD Last intake: Intake Last Liquid Date 07/21/23 Last Liquid Time 20:00 Last Solid Date 07/21/23 Last Solid Time 18:30 Social No alcohol and No tobacco Exam alert, oriented x 3, clear to auscultation bilaterally and regular rate & rhythm Airway Submandibular: within normal limits Cervical ROM: within normal limits Mallampati: Class I Dentition: partials and full Pulmonary Sleep Apnea CV/HEM Hypertension None reported Hepatic None reported GI s/p fundoplication [facility] Osteoarthritis/DJD Anesthetic Plan ASA status: 3 Anesthesia: General Risk of > 500 ml blood loss (7ml/kg in children): No Medications/Allergies Home Medications Medication Instructions Recorded Confirmed Last Taken Type cetirizine 10 mg tablet 10 mg PO DAILY PRN Allergic 11/20/21 07/21/23 02/03/23 History Symptoms cholecalciferol (vitamin D3) 50 50 mcg PO DAILY 11/20/21 07/21/23 07/14/23 History mcg (2,000 unit) capsule glucosamine HCl 1,500 mg tablet 1,500 mg PO BID 11/20/21 07/21/23 02/03/23 History losartan 100 mg tablet 100 mg PO DAILY 11/20/21 07/21/23 07/21/23 History multivitamin 1 tab PO DAILY 11/20/21 07/21/23 07/14/23 History tamsulosin 0.4 mg capsule 0.8 mg PO DAILY 11/20/21 07/21/23 07/21/23 History aspirin 81 mg capsule 81 mg PO DAILY 06/23/22 07/21/23 07/17/23 History tramadol 50 mg tablet 50 mg PO Q6H PRN pain #20 tabs 02/04/23 07/21/23 Unknown Rx hydroxychloroquine 200 mg tablet 200 mg PO BID #60 tabs 05/13/23 07/21/23 Unknown Rx prednisone 20 mg tablet See Rx Instructions PO .COMPLEX 05/13/23 07/21/23 Unknown Rx PRN joint pain flare #30 tabs pregabalin 100 mg capsule (Lyrica) 100 mg PO BID #60 caps 05/13/23 07/21/23 07/21/23 Rx syringe with needle 1 mL 25 gauge #50 ea 05/18/23 07/09/23 Unknown Rx x 5/8 (Monoject TB Safety Syringe) methotrexate sodium 25 mg/mL 25 mg SUBCUT Q7D #10 mL 05/24/23 07/21/23 07/21/23 Rx injection solution cockup splint #1 ea 06/28/23 07/09/23 Unknown Rx finasteride 5 mg tablet 5 mg PO DAILY 07/16/23 07/21/23 Unknown History psyllium husk 0.4 gram capsule 0.4 g PO DAILY 07/16/23 07/21/23 07/21/23 History (Fiber (psyllium husk)) Allergies Allergy/AdvReac Type Severity Reaction Status Date / Time No Known Drug Allergies Allergy Unknown Unknown Verified 07/21/23 08:22 Current Medications Generic Name Dose Route Start Last Admin Trade Name Freq PRN Reason Stop Dose Admin Sodium Chloride 1,000 mls @ 30 mls/hr 07/22/23 10:15 07/22/23 10:40 Sodium Chloride 0.9% IV 07/23/23 10:14 30 mls/hr .Q24H MIRACLE Administration PFSH Anesthesia Medical History Centromere antibody positive Immunization counseling High risk medication use Inflammatory arthritis Positive ONEIDA (antinuclear antibody) GERD (gastroesophageal reflux disease) Gout Hypertension Syncopal episodes Kidney stone Surgical History Previous back surgery L4 L5 History of cholecystectomy Family History Other Crohn's disease Denies family history of Rheumatoid arthritis Diabetes Lupus Family history of premature coronary artery disease Lung disease Hypertension Stroke Social History Smoking and tobacco/nicotine status: never used tobacco/nicotine Data Anesthesia Cardiac Studies: No Data to Display
--- NOTE | 2023-07-22 11:57 | W.PM.OPSUD ---
Surgery/Procedure H&P Update DATE OF PROCEDURE: July 22, 2023 DATE H&P PERFORMED: 07/16/23 H&P UPDATE INFORMATION: I have reviewed H&P completed within last 30 days, I have examined patient prior to procedure, No changes to prior documentation and H&P is in [facility] EMR on date indicated PLANNED PROCEDURE: Operation Date: 07/22/23 12:05 Proposed Procedures p Right Carpal Tunnel Release, Right Cubital Tunnel Release(Right) - Claribel Espinoza MD Related Problem List Diagnoses (1) Carpal tunnel syndrome on right:
[2023-07-22] MEDS: ceFAZolin 2,000 MG in sodium chloride 0.9% (plus) 50 ML 100 MG IV (12:06)
[2023-07-22] MEDS: BUPivacaine 0.5% INJ 30 mL XX (12:36)
--- NOTE | 2023-07-22 12:56 | P.OP_ITS ---
Operative Report Date of procedure: July 22, 2023 Pre-op diagnosis: Right carpal tunnel syndrome Post-op diagnosis: Right carpal tunnel syndrome Post-op findings: Significant compression across the carpal canal with hourglass deformity to the median nerve Procedure done: Right carpal tunnel release Specimens removed/disposition: None Pathology: None Surgeon: Claribel Espinoza MD Certified Fire Investigator: None Anesthesia: General (Per LMA, ASA 3) Estimated blood loss (mL): 1 Tourniquet time (min): 22 (At 250 mmHg) IV fluids (mL): 800 Urine output (mL): 0 (No Rios) Complications: None Findings: Significant compression across the carpal canal causing hourglass deformity to the median nerve Condition: stable Disposition: PACU (Then transfer to same-day surgery for discharge to home) Brief History: This 73-year-old gentleman presented complaining of right carpal tunnel syndrome. At the time of his initial visit, he had 5 of 10 pain. He reported symptoms lasting for 6 to 8 years. He had significant numbness. Although then nerve conduction study demonstrated some ulnar nerve findings, the patient does not have symptoms consistent with ulnar nerve pathology. When he was seen in the office, consents were obtained and risks and complications of surgery were discussed. Procedure: The patient was brought to the operating theater. The patient had a general anesthesia per LMA, ASA 3. The tourniquet was elevated to 250 mmHg for a total tourniquet time of 22 minutes. The patient was also given Ancef 2 g preoperatively. The arm was then prepped and draped with DuraPrep in usual fashion with the arm draped free. A surgical pause was performed. At the time, the surgical pause, we confirmed the site and side of surgery. We also confirmed the patient's identity, appropriate and timely administration of preoperative antibiotics and preoperative surgical markings. An incision was then made along the thenar crease. The incision crossed the wrist joint in a curvilinear fashion. Dissection continued through skin and soft tissues using a scalpel. The palmaris longus was identified along with the transverse carpal ligament. Each of these was released carefully to avoid injury to the median nerve. We were able to dissect gently into the carpal canal which was noted to be quite tight with significant compression across the median nerve. The nerve was visualized and was an hourglass shape. The canal was subsequently palpated to assure there was no bony encroachment upon the canal. There was a quite thickened fibrous tissue within the canal, and this was opened longitudinally as well. The canal was then palpated distally and proximally to assure that my small finger was passed easily without impingement. Finding this to be so, attention was directed to closure. The wound was irrigated with ropivacaine plain. It was then closed with 3-0 nylon in an interrupted mattress fashion. Sterile dressing was then placed consisting of Dermabond, OpSite, fluffed fluffs, soft roll, and an Scot wrap. The tourniquet was released after 22 minutes. There were no complications. There were no specimens. The procedure was well tolerated. Plan is the patient will be discharged home. Related Problem List Diagnoses (1) Carpal tunnel syndrome on right:
--- NOTE | 2023-07-22 13:55 | ANE.PACU2 ---
Inpatient post-anesthesia follow up: Vital signs: Temperature 97.6 F Pulse Rate 62 Respiratory Rate 16 Blood Pressure 118/82 Pulse Oximetry 97 Oxygen Delivery Me thod Room Air Oxygen Flow Rate 8 Fraction of Inspir ed Oxygen Hydration adequate: Yes Nausea and vomiting: No Mental status: Baseline Additional Comments: no apparent anesthetic complications noted
== END 2023-07-22 13:56 | disposition home or self-care (01) ==
PROVIDERS: PCP Registered Nurse; Visit Provider Specialist
PROC: (CPT 64721; principal; 2023-07-22 11:55)
DX: G56.01 Carpal tunnel syndrome, right upper limb (principal); G47.30 Sleep apnea, unspecified; I10 Essential (primary) hypertension; Z79.82 Long term (current) use of aspirin; K21.9 Gastro-esophageal reflux disease without esophagitis
CPT/HCPCS: 64721; J0131; J0690; J1100; J2405; J2704; J3010; J3490; J7030

== ENCOUNTER → 2023-08-16 15:00 | Outpatient (BNVA) | payer MEDICARE, OTHER, SELFPAY | PROVIDERS: PCP Registered Nurse; Visit Provider Internal Medicine Rheumatology | DX: Z79.899 Other long term (current) drug therapy (principal); M19.90 Unspecified osteoarthritis, unspecified site; M25.569 Pain in unspecified knee; G56.01 Carpal tunnel syndrome, right upper limb | CPT/HCPCS: 73562; 99024; 99214 ==

== ENCOUNTER → 2024-01-03 13:14 | Outpatient (BNVA) | payer MEDICARE, OTHER, SELFPAY | PROVIDERS: PCP Registered Nurse; Visit Provider Internal Medicine Rheumatology | DX: R76.8 Other specified abnormal immunological findings in serum (principal); M19.90 Unspecified osteoarthritis, unspecified site; Z79.899 Other long term (current) drug therapy; Z71.85 Encounter for immunization safety counseling; Z96.612 Presence of left artificial shoulder joint; Z11.1 Encounter for screening for respiratory tuberculosis; Z11.59 Encounter for screening for other viral diseases | CPT/HCPCS: 36415; 80076; 82565; 85025; 85651; 86140; 99214 ==

== ENCOUNTER 2024-01-05 09:00 | Outpatient (CLI) | payer MEDICARE, OTHER, SELFPAY ==
--- NOTE | 2024-01-05 09:30 | USCV_ITS ---
Gregg Singer Age: 73 Gender: M : 1950 Exam Date: 01/05/2024 09:28 Ordering Phys: Onofre Martinez MD Technologist: TOR Exam Location: [facility] [place] Indication: LT LE Swelling and Pain HISTORY: Lower extremity pain. Lower extremity swelling. PROCEDURES: Venous duplex imaging was performed in only the left lower extremity. The following venous structures were evaluated: common femoral vein, profunda vein, proximal portion of the greater saphenous vein, superficial femoral vein, and the popliteal vein. In addition, the posterior tibial and peroneal trunk were evaluated. Serial compression, augmentation maneuvers, and spectral Doppler flow evaluation were performed. FINDINGS: Normal 2-D Doppler and augmentation and compressibility throughout the lower extremity venous structures. Additional imaging through the proximal calf veins also reveals no thrombus. Limited evaluation of the greater saphenous vein is patent with no thrombus. CONCLUSIONS No DVT left lower extremity. Dr. Dai Pandya DO (Electronically Signed) Final Date: 05 January 2024 11:17 S
== END 2024-01-05 09:01 | disposition home or self-care (01) ==
LOC: RAD 09:02
PROVIDERS: PCP Registered Nurse; Visit Provider Internal Medicine Rheumatology
DX: M79.662 Pain in left lower leg (principal)
CPT/HCPCS: 93971

== ENCOUNTER → 2024-05-10 10:56 | Outpatient (BNVA) | payer MEDICARE, OTHER, SELFPAY | PROVIDERS: PCP Registered Nurse; Visit Provider Internal Medicine Rheumatology | DX: R76.8 Other specified abnormal immunological findings in serum (principal); M19.90 Unspecified osteoarthritis, unspecified site; Z79.899 Other long term (current) drug therapy; Z71.85 Encounter for immunization safety counseling; Z96.612 Presence of left artificial shoulder joint | CPT/HCPCS: 36415; 80076; 82565; 85025; 85651; 86140; 99214 ==

== ENCOUNTER → 2024-07-11 09:46 | Outpatient (BNVA) | payer MEDICARE, OTHER, SELFPAY | PROVIDERS: PCP Registered Nurse; Visit Provider Physician Assistant | DX: Z96.612 Presence of left artificial shoulder joint (principal) | CPT/HCPCS: 73030; 99213 ==

== ENCOUNTER → 2024-09-06 10:22 | Outpatient (BNVA) | payer MEDICARE, OTHER, SELFPAY | PROVIDERS: PCP Registered Nurse; Visit Provider Internal Medicine Rheumatology | DX: R76.8 Other specified abnormal immunological findings in serum (principal); M19.90 Unspecified osteoarthritis, unspecified site; Z79.899 Other long term (current) drug therapy; Z71.85 Encounter for immunization safety counseling; Z96.612 Presence of left artificial shoulder joint | CPT/HCPCS: 99214 ==

== ENCOUNTER → 2024-09-11 13:52 | Outpatient (BNVA) | payer MEDICARE, OTHER, SELFPAY | PROVIDERS: PCP Registered Nurse; Visit Provider Internal Medicine Rheumatology | DX: M25.511 Pain in right shoulder (principal); M19.90 Unspecified osteoarthritis, unspecified site | CPT/HCPCS: 20610; J1010; J9999 ==

== ENCOUNTER → 2025-02-13 11:50 | Outpatient (BNVA) | payer MEDICARE, OTHER, SELFPAY | PROVIDERS: PCP Registered Nurse; Visit Provider Internal Medicine Rheumatology | DX: R76.89 Other specified abnormal immunological findings in serum (principal); Z79.899 Other long term (current) drug therapy; Z71.85 Encounter for immunization safety counseling; M06.041 Rheumatoid arthritis without rheumatoid factor, right hand; M06.042 Rheumatoid arthritis without rheumatoid factor, left hand; Z96.642 Presence of left artificial hip joint; Z98.890 Other specified postprocedural states; M17.12 Unilateral primary osteoarthritis, left knee; M11.262 Other chondrocalcinosis, left knee; M25.462 Effusion, left knee | CPT/HCPCS: 73562; 99214 ==

== ENCOUNTER → 2025-02-19 14:16 | Outpatient (BNVA) | payer MEDICARE, OTHER, SELFPAY | PROVIDERS: PCP Registered Nurse; Visit Provider Internal Medicine Rheumatology | DX: M25.50 Pain in unspecified joint (principal); I10 Essential (primary) hypertension | CPT/HCPCS: 20600; J1010; J9999 ==